=== PATIENT | female | born 1955 | race Hispanic/Latino ===

== ENCOUNTER 2017-10-03 02:13 | Emergency (ER) | payer SELFPAY ==
[2017-10-03 02:43] VITALS: RESP 18; TEMP 98.1
--- NOTE | 2017-10-03 02:46 | ED PDOC ---
Arrival/HPI - General Historian: Patient, Spouse - History of Present Illness Time/Duration: Prior to Arrival, < week Symptom Onset: Gradual Symptom Course: Worsening Quality: Stabbing <Antoine Fair - Last Filed: 10/03/17 02:41> <Ralph Lau - Last Filed: 10/03/17 05:52> - General Chief Complaint: Lower Extremity Problem/Injury Time Seen by Provider: 10/03/17 02:41 - History of Present Illness Narrative History of Present Illness (Text): 10/03/17 04:32 Patient is a 61 year old female with no past medical history presenting to the emergency room with severe right leg pain. The pain is sharp in nature and is constant. It wraps around her right hip and goes down the anterior portion of her thigh. The pain started sunday night after helping her son move. She denies any specific movements or events during that move that caused her to have pain, it just gradually came on. Over the past few days the pain has been getting worse to where she attempted to go to a chiropractor today in an attempt to get relief. It did not work. She took a tylenol with codeine which took the pain from a 20 to a 10. No position improves the pain. She has been unable to stand on her leg tonight and needed to sit on her butt to slide down the stairs. Her had to carry her to the car tonight because she is unable to bear any weight on the leg. She has never had this pain before. Denies any other symptoms at this time. Denies trauma, inciting event, fall, muscle spasms, vision changes, lightheadedness, dizziness, numbness, tingling, saddle parestheisa, loss of bowel or bladder function or low back pain. (Antoine Fair) Past Medical History - Provider Review Nursing Documentation Reviewed: Yes - Infectious Disease Hx of Infectious Diseases: None - Musculoskeletal/Rheumatological Hx Falls: No - Psychiatric Hx Depression: No Hx Substance Use: No - Surgical History Hx Tonsillectomy: Yes - Anesthesia Hx Anesthesia: Yes - Suicidal Assessment Feels Threatened In Home Enviroment: No <Antoine Fair - Last Filed: 10/03/17 02:41> Family/Social History - Physician Review Nursing Documentation Reviewed: Yes Family/Social History: No Known Family HX Smoking Status: Never Smoked Hx Alcohol Use: No Hx Substance Use: No Hx Substance Use Treatment: No <Antoine Fair - Last Filed: 10/03/17 02:41> Allergies/Home Meds <Antoine Fair - Last Filed: 10/03/17 02:41> <Ralph Lau - Last Filed: 10/03/17 05:52> Allergies/Adverse Reactions: Allergies No Known Allergies Allergy (Verified 02/20/12 01:40) Home Medications: Home Meds Medication Instructions Recorded Confirmed Atorvastatin Calcium [Lipitor] 10 mg PO DAILY 02/20/12 02/20/12 Review of Systems - Physician Review All systems were reviewed & negative as marked: Yes - Review of Systems Respiratory: Normal. absent: SOB, Cough Cardiovascular: Normal. absent: Chest Pain, Palpitations, Calf Pain Musculoskeletal: Other (right leg pain) Skin: Normal Neurological: Other (neuropathic pain in right leg) Endocrine: Normal. absent: Diaphoresis <Antoine Fair - Last Filed: 10/03/17 02:41> Physical Exam Vital Signs Reviewed: Yes Temperature: Afebrile Blood Pressure: Hypertensive Pulse: Regular Respiratory Rate: Normal Appearance: Positive for: Well-Appearing, Non-Toxic, Comfortable Pain Distress: None Mental Status: Positive for: Alert and Oriented X 3 - Systems Exam Head: Present: Atraumatic, Normocephalic Conjunctiva: Present: Normal Neck: Present: Normal Range of Motion. No: Meningeal Signs, MIDLINE TENDERNESS , Paraspinal Tenderness Respiratory/Chest: No: Respiratory Distress, Accessory Muscle Use Cardiovascular: Present: Regular Rate and Rhythm Back: Present: Paraspinal Tenderness (b/l). No: CVA Tenderness, Midline Tenderness, Pain with Leg Raise Upper Extremity: Present: Normal Inspection, NORMAL PULSES. No: Edema Lower Extremity: Present: NORMAL PULSES, Neurovascularly Intact, Capillary Refill < 2 s, Other (strength 5/5 b/l). No: Edema, CALF TENDERNESS, Erythema Neurological: Present: GCS=15, CN II-XII Intact, Speech Normal, Motor Func Grossly Intact Skin: Present: Warm, Dry, Normal Color. No: Rashes Psychiatric: Present: Alert, Oriented x 3, Normal Insight, Normal Concentration <Antoine Fair - Last Filed: 10/03/17 02:41> Vital Signs Temp Pulse Resp BP Pulse Ox 10/03/17 02:42 98.1 F 82 18 147/93 H 100 Medical Decision Making <Antoine Fair - Last Filed: 10/03/17 02:41> <Ralph Lau - Last Filed: 10/03/17 05:52> ED Course and Treatment: 10/03/17 02:49 Patient states she has sciatic pain with history of sciatica. Given Flexeril and Toradol Will re-assess after medication as patient is in too much pain to give history 10/03/17 04:10 Patient states the medications has improved the pain slightly but she is still very uncomfortable. She is unable to find a comfortable position for her leg. She is constantly moving it due to pain that is sharp and radiates around her hip down the front of her thigh to her knee. Given 1 percocet Will re-assess (Antoine Fair) Impression: Pt seen and evaluated with senior medical transcriptionist. Aware and agree with HPI, clinical findings, plan, and management. 61 year old female presented lower back pain, similar to usual sciatica symptoms. Plan: -- Toradol -- Flexeril -- Reassess and disposition On re-evaluation, patient feels better and is in no acute distress after medication. Patient is stable for discharge. Patient was instructed to follow up with physician or return if symptoms worsen or new concerning symptoms arise. (Ralph Lau) - Medication Orders Current Medication Orders: Discontinued Medications Cyclobenzaprine HCl (Flexeril) 10 mg PO STAT STA Stop: 10/03/17 02:50 Last Admin: 10/03/17 03:13 Dose: 10 mg Ketorolac Tromethamine (Toradol) 60 mg IM STAT STA Stop: 10/03/17 02:50 Last Admin: 10/03/17 03:14 Dose: 60 mg [facility] Pain Assessment Document 10/03/17 03:14 SS (Rec: 10/03/17 03:18 [facility] [id number] Pain Reassessment Is this a pain reassessment? No Sleep Is patient sleeping during reassessment? No Presence of Pain Presence of Pain Yes Pain Scale Used Pain Scale Used Numeric Location Left, Right or Bilateral Right Pain Location Body Site Leg Description Description Constant Intensity of Pain at present 10 Pain Behavior Moaning Crying Grasping Site Rubbing Site Restlessness IM Administration Charges Document 10/03/17 03:14 SS (Rec: 10/03/17 03:18 [facility] [id number] Injection Site MAR Injection Site Right Deltoid Charges for Administration # of IM Administrations 1 Oxycodone/Acetaminophen (Percocet 5/325 Mg Tab) 1 tab PO STAT STA Stop: 10/03/17 04:10 Last Admin: 10/03/17 04:49 Dose: 1 tab MAR Pain Assessment Document 10/03/17 04:49 SS (Rec: 10/03/17 04:50 [facility] [id number] Pain Reassessment Is this a pain reassessment? Yes Sleep Is patient sleeping during reassessment? 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 / has examined the patient and agrees with the treatment plan. <Ralph Lau - Last Filed: 10/03/17 05:52> Disposition/Present on Arrival - Present on Arrival History of DVT/PE: No History of Uncontrolled Diabetes: No Urinary Catheter: No History of Decub. Ulcer: No History Surgical Site Infection Following: None <Antoine Fair - Last Filed: 10/03/17 02:41> - Present on Arrival Any Indicators Present on Arrival: No - Disposition Have Diagnosis and Disposition been Completed?: Yes Disposition Time: 05:47 Patient Plan: Discharge <Ralph Lau - Last Filed: 10/03/17 05:52> - Disposition Diagnosis: Sciatica, Radiculopathy Disposition: HOME/ ROUTINE Patient Problems: Current Active Problems Problem Status Onset Radiculopathy Acute Sciatica Acute Condition: GOOD Discharge Instructions (ExitCare): Sciatica (DC), Radiculopathy (DC) Additional Instructions: Avoid any strenuous physical activity/avoid placing any pressure on the affected area/take meds as prescribed/follow up with your doctor as scheduled Prescriptions: Cyclobenzaprine [Cyclobenzaprine HCl] 10 mg PO TID PRN #15 tab PRN Reason: Muscle Spasm oxyCODONE/Acetaminophen [Percocet 5/325 mg Tab] 1 ea PO Q6 PRN #16 tab PRN Reason: Pain, Moderate (4-7) Forms: [facility] (Hebrew)
[2017-10-03] MEDS ORDERED: Oxycodone/Acetaminophen 5/325 mg Tab PO STA (04:09)
[2017-10-03 06:08] VITALS: BP 137/82; PULSE 70; O2SAT 98
== END 2017-10-03 06:03 | disposition home or self-care (01) ==
LOC: ED 02:13
DX: M54.10 Radiculopathy, site unspecified (principal); M54.30 Sciatica, unspecified side
CPT/HCPCS: 96372; 99283; J1885

== ENCOUNTER 2017-10-04 07:25 | Inpatient (IN) | payer BC ==
--- NOTE | 2017-10-04 07:48 | ED PDOC ---
Arrival/HPI - General Chief Complaint: Lower Extremity Problem/Injury Time Seen by Provider: 10/04/17 07:47 Historian: Patient - History of Present Illness Narrative History of Present Illness (Text): 10/04/17 08:00 61 year old female, whose PMH includes cholecystectomy, who presents to the emergency department complaining of severe pain on the right side of lower back that radiates down the leg since 3 days ago. Patient states she was lifting something heavy when the pain began, making her come to the emergency department , where she was prescribed Percocets. Patient reports the medication did not relief her pain and went to an orthopedic, who prescribed her Naproxen and an MRI, but she could not wait since the pain was unbearable. Patient denies dysuria, hematuria, frequency, chest pain, shortness of breath, headache, nausea , vomiting, diarrhea, or other complaints. PMD: Dr. Rodriguez Time/Duration: < week (3 days) Symptom Onset: Sudden Symptom Course: Worsening Severity Level: Severe Context: Exertion, Home Past Medical History - Provider Review Nursing Documentation Reviewed: Yes - Infectious Disease Hx of Infectious Diseases: None - Musculoskeletal/Rheumatological Hx Falls: No - Psychiatric Hx Substance Use: No - Surgical History Hx Cholecystectomy: Yes Hx Hysterectomy: Yes Hx Tonsillectomy: Yes - Anesthesia Hx Anesthesia: Yes - Suicidal Assessment Feels Threatened In Home Enviroment: No Family/Social History - Physician Review Nursing Documentation Reviewed: Yes Family/Social History: Unknown Family HX Smoking Status: Never Smoked Hx Alcohol Use: No Hx Substance Use: No Hx Substance Use Treatment: No Allergies/Home Meds Allergies/Adverse Reactions: Allergies No Known Allergies Allergy (Verified 10/04/17 15:29) Home Medications: Home Meds Medication Instructions Recorded Confirmed Methylprednisolone [Medrol Dosepak] 4 mg PO DAILY 10/04/17 10/04/17 Naproxen [Naprosyn] 500 mg PO Q12 10/04/17 10/04/17 Review of Systems - Review of Systems Constitutional: absent: Fevers Respiratory: absent: SOB Cardiovascular: absent: Chest Pain Gastrointestinal: absent: Abdominal Pain, Vomiting Genitourinary Female: absent: Dysuria, Frequency, Hematuria Musculoskeletal: Back Pain (right sided lowere back pain that radiates down the right leg) Skin: absent: Rash Neurological: absent: Headache Endocrine: absent: Diaphoresis Hemo/Lymphatic: absent: Adenopathy Physical Exam Vital Signs Reviewed: Yes Vital Signs Temp Pulse Resp BP Pulse Ox 10/04/17 15:24 98.7 F 72 18 126/66 98 10/04/17 13:00 74 16 129/80 99 10/04/17 12:45 78 18 132/84 98 10/04/17 12:30 88 18 136/81 98 10/04/17 12:00 80 18 129/83 99 10/04/17 11:45 75 16 128/75 99 10/04/17 11:30 74 18 130/67 98 10/04/17 11:05 77 16 134/74 99 10/04/17 10:50 76 18 129/78 99 10/04/17 10:35 88 16 133/80 99 10/04/17 10:20 90 18 131/77 898 H 10/04/17 10:05 92 H 18 136/84 99 10/04/17 07:41 98.0 F 88 18 174/88 H 100 Temperature: Afebrile Blood Pressure: Hypertensive Pulse: Regular Respiratory Rate: Normal Appearance: Positive for: Well-Appearing, Non-Toxic Pain Distress: Moderate Mental Status: Positive for: Alert and Oriented X 3 - Systems Exam Head: Present: Atraumatic, Normocephalic Pupils: Present: PERRL Extroacular Muscles: Present: EOMI Conjunctiva: Present: Normal Mouth: Present: Moist Mucous Membranes Cardiovascular: Present: Regular Rate and Rhythm, Normal S1, S2. No: Murmurs Abdomen: Present: Normal Bowel Sounds. No: Tenderness, Distention, Peritoneal Signs, Rebound, Guarding Back: Present: Paraspinal Tenderness (tenderness in right upper sacrum area ). No: Normal Inspection, Pain with Leg Raise Upper Extremity: Present: Normal Inspection, Normal ROM, NORMAL PULSES, Neurovascularly Intact, Capillary Refill < 2s. No: Cyanosis, Edema, Tenderness , Swelling, Erythema, Deformity Lower Extremity: Present: NORMAL PULSES, Normal ROM, Tenderness (right upper thigh), Neurovascularly Intact, Capillary Refill < 2 s, Other (pain with flexion on hip). No: Normal Inspection, Edema, CALF TENDERNESS, Cyanosis, Erythema, Deformity, Temperature Abnormalties Neurological: Present: GCS=15, CN II-XII Intact, Speech Normal, Motor Func Grossly Intact, Normal Sensory Function, Normal Cerebellar Funct, Norm Deep Tendon Reflexes Skin: Present: Warm, Dry, Normal Color. No: Rashes Psychiatric: Present: Alert, Oriented x 3, Normal Insight, Normal Concentration Medical Decision Making ED Course and Treatment: 10/04/17 Impression: 61 year old female with tenderness on the right upper and sacrum area, along with tenderness on right upper thigh with pain on hip flexion, complaining of right lower back pain that radiates down leg since 3 days ago. Differential Diagnosis included but are not limited to: sciatica vs. lumbar radiculopathy vs. fibrositis Plan: -- Tylenol, Flexeril, Toradol, and Lidoderm -- Lumbar spine x-ray -- Reassess and disposition Progress Notes: 10/04/17 10:15 Lumbar Spine x-ray: Creator : Vishal Sage MD FINDINGS: BONES: Normal alignment. No listhesis. No fracture. DISC SPACES: Mild disc and facet degeneration at L4-5 and L5-S1 OTHER FINDINGS: None. IMPRESSION: Mild disc and facet degeneration at L4-5 and L5-S1 10/04/17 13:30 On reevaluation, patients pain had resolved s/p Ketamine. Once the patient sat down for d/c she experienced exquisite pain that has worsened since she arrived. She was crying in pain. She was unable to walk. Patient was given Morphine and cases was discussed with Dr. Malcolm who plan to admit patient to observation and recommendation for pain management. - Lab Interpretations Lab Results: 10/04/17 13:25 10/04/17 13:25 Lab Results 10/04/17 13:25: Sodium 144, Potassium 4.6, Chloride 104, Carbon Dioxide 20 L, Anion Gap 25 H, BUN 18, Creatinine 0.6 L, Est GFR ( Amer) > 60, Est GFR ( Non-Af Amer) > 60, Random Glucose 88, Calcium 10.3 10/04/17 13:25: PT 12.3, INR 1.08, APTT 27.3 10/04/17 13:25: WBC 9.6, RBC 4.98, Hgb 16.0, Hct 44.6, MCV 89.6, MCH 32.1, MCHC 35.9, RDW 12.0, Plt Count 278, MPV 12.2 H, Gran % 78.5 H, Lymph % (Auto) 17.2 L , [place] % (Auto) 4.3, Eos % (Auto) 0.0 L, Baso % (Auto) 0.0, Gran # 7.55 H, Lymph # (Auto) 1.7, [place] # (Auto) 0.4, Eos # (Auto) 0.0, Baso # (Auto) 0.00 - RAD Interpretation Radiology Orders: 10/04/17 08:01 LS SPINE WITH OBL > 18 YRS OLD [RAD] Stat Vocational Training Teacher: Radiologist - Medication Orders Current Medication Orders: Ketamine HCl 100 mg/ Sodium (Chloride) 110 mls @ 8.13 mls/hr IVPB ONCE STA; 0.1 MG/KG/HR PRN Reason: Protocol Stop: 10/04/17 23:32 Last Admin: 10/04/17 10:05 Dose: 8.13 mls/hr eMAR Start Stop Document 10/04/17 10:05 MECCA (Rec: 10/04/17 10:06 [facility] [id number]) Intravenous Solution Start Date 10/04/17 Start Time 10:06 End Date 10/04/17 End time 12:45 Total Infusion Time 159 Morphine Sulfate (Morphine) 4 mg IVP Q4H PRN PRN Reason: Pain, moderate (4-7) Oxycodone/Acetaminophen (Percocet 10/325 Mg Tab) 1 tab PO Q4H PRN PRN Reason: Pain, moderate (4-7) Discontinued Medications Acetaminophen (Tylenol 325mg Tab) 975 mg PO STAT STA Stop: 10/04/17 08:00 Last Admin: 10/04/17 08:09 Dose: 975 mg MAR Pain/Vitals Document 10/04/17 08:09 MECCA (Rec: 10/04/17 08:09 [facility] [id number]) Pain Reassessment Is This A Pain ReAssessment? No Sleep Is patient sleeping during reassessment? No Presence of Pain Presence of Pain Yes Pain Scale Used Pain Scale Used Numeric Location Description Constant Intensity 10 Scale Used Numeric Cyclobenzaprine HCl (Flexeril) 10 mg PO STAT STA Stop: 10/04/17 08:00 Last Admin: 10/04/17 08:10 Dose: 10 mg Ketorolac Tromethamine (Toradol) 60 mg IM STAT STA Stop: 10/04/17 08:00 Last Admin: 10/04/17 08:10 Dose: 60 mg MAR Pain Assessment Document 10/04/17 08:10 SZA (Rec: 10/04/17 08:10 [id number] Pain Reassessment Is this a pain reassessment? No Sleep Is patient sleeping during reassessment? No Presence of Pain Presence of Pain Yes IM Administration Charges Document 10/04/17 08:10 SZA (Rec: 10/04/17 08:10 [id number]) Injection Site MAR Injection Site Right Gluteus Philipp Charges for Administration # of IM Administrations 1 Lidocaine (Lidoderm) 1 ea TD STAT STA Stop: 10/04/17 08:00 Last Admin: 10/04/17 08:09 Dose: 1 ea MAR Transdermal Patch Site Document 10/04/17 08:09 SZA (Rec: 10/04/17 08:09 [id number]) Transdermal Patch Site Transdermal Patch Site Right Lower Back Morphine Sulfate (Morphine) 4 mg IVP STAT STA Stop: 10/04/17 13:16 Last Admin: 10/04/17 13:25 Dose: 4 mg MAR Pain Assessment Document 10/04/17 13:25 SZA (Rec: 10/04/17 13:26 [id number][facility] Pain Reassessment Is this a pain reassessment? No Sleep Is patient sleeping during reassessment? No Presence of Pain Presence of Pain Yes Pain Scale Used Pain Scale Used Numeric Description Description Constant Intensity of Pain at present 6 IVP Administration Document 10/04/17 13:25 A (Rec: 10/04/17 13:26 [id number]) Charges for Administration # of IVP Administrations 1 - Scribe Statement The provider has reviewed the documentation as recorded by the Scribe Yvonne Cadena Provider Scribe Attestation: All medical record entries made by the Scribe were at my direction and personally dictated by me. I have reviewed the chart and agree that the record accurately reflects my personal performance of the history, physical exam, medical decision making, and the department course for this patient. I have also personally directed, reviewed, and agree with the discharge instructions and disposition. Disposition/Present on Arrival - Present on Arrival Any Indicators Present on Arrival: No History of DVT/PE: No History of Uncontrolled Diabetes: No Urinary Catheter: No History of Decub. Ulcer: No History Surgical Site Infection Following: None - Disposition Have Diagnosis and Disposition been Completed?: Yes Diagnosis: Lumbar radicular pain, Sciatica Disposition: HOME/ ROUTINE Disposition Time: 13:21 Patient Plan: Observation Patient Problems: Current Active Problems Problem Status Onset Lumbar radicular pain Acute Sciatica Acute Condition: FAIR
[2017-10-04] MEDS ORDERED: Lidocaine 5% Patch TD STA (07:59)
--- NOTE | 2017-10-04 10:09 | RAD ---
PROCEDURE: Radiographs of the Lumbar Spine. HISTORY: back pain COMPARISON: No prior. FINDINGS: BONES: Normal alignment. No listhesis. No fracture. DISC SPACES: Mild disc and facet degeneration at L4-5 and L5-S1 OTHER FINDINGS: None. IMPRESSION: Mild disc and facet degeneration at L4-5 and L5-S1
[2017-10-04] MEDS ORDERED: Morphine 4 mg/ml ISec IVP STA (13:15)
[2017-10-04 13:31] LABS: GRAN # 7.55 (1.4-6.5); GRAN % 78.5 % (50.0-68.0); LYMPH # 1.7 (1.2-3.4); LYMPH % 17.2 % (22.0-35.0); MEAN CELL VOLUME 89.6 fl (80.0-105.0); MEAN CORPUSCULAR HEMOGLOBIN 32.1 pg (25.0-35.0); MEAN CORPUSCULAR HGB CONC 35.9 g/dl (31.0-37.0); MEAN PLATELET VOLUME 12.2 fl (7.0-11.0); MONO # 0.4 (0.1-0.6); MONO % 4.3 % (1.0-6.0); RBC 4.98 10^6/uL (3.5-6.1); WHITE BLOOD COUNT 9.6 10^3/ul (4.5-11.0)
[2017-10-04 13:49] LABS: INR 1.08 (0.93-1.08); PARTIAL THROMBOPLASTIN TIME 27.3 Seconds (25.1-36.5); PROTHROMBIN TIME 12.3 SECONDS (9.4-12.5)
[2017-10-04 14:37] LABS: GFR AFRICAN-AMERICAN > 60; GFR NON-AFRICAN AMERICAN > 60
[2017-10-04] MEDS ORDERED: Oxycodone/Acetaminophen 10/325 mg Tab PO PRN (16:51)
[2017-10-04] MEDS ORDERED: Pneumococcal 23-Valent Vaccine IM ONE (20:37)
[2017-10-04 20:38] VITALS: BMI 30.8
[2017-10-04 20:48] LABS: BLOOD UREA NITROGEN 17 mg/dL (7-21); CALCIUM 10.3 mg/dL (8.4-10.5)
[2017-10-04] MEDS ORDERED: METHYLPREDNISOLONE PO SCH (22:00)
[2017-10-04] MEDS: Morphine 4 mg/ml ISec IVP PRN (22:02)
[2017-10-05] MEDS: Morphine 4 mg/ml ISec IVP PRN (06:20)
[2017-10-05] MEDS: METHYLPREDNISOLONE 4 MG PO PRN ×4 (09:04→21:14)
[2017-10-05] MEDS: oxyCODONE 10 mg Immediate Release Tab PO PRN ×2 (10:21→21:18)
--- NOTE | 2017-10-05 12:08 | MRI ---
PROCEDURE: MR LUMBAR SPINE WITHOUT CONTRAST HISTORY: acute back pain with R leg radiculopathy COMPARISON: None available. TECHNIQUE: Multiecho multiplanar sequences were performed through the lumbar spine without the use of intravenous contrast. FINDINGS: Normal lumbar lordosis. Vertebral body heights are preserved. Marrow signal unremarkable. Conus medullaris unremarkable at the level of L1 Paraspinal soft tissues are unremarkable. T12-L1: No disc herniation, spinal canal stenosis or neural foraminal narrowing. L1-2: No disc herniation, spinal canal stenosis or neural foraminal narrowing. L2-3: No disc herniation, spinal canal stenosis or neural foraminal narrowing. L3-4: No disc herniation, spinal canal stenosis or neural foraminal narrowing. L4-5: There is severe facet arthropathy. There is a mild disc bulge. There is severe central stenosis. L5-S1: Disc degeneration and disc bulging with a small radial tear. Bilateral foraminal stenosis OTHER FINDINGS: None. IMPRESSION: L4-5. Severe central stenosis. Bilateral foraminal stenosis at L5-S1
[2017-10-05] MEDS ORDERED: Morphine 4 mg/ml ISec IVP PRN (12:09)
--- NOTE | 2017-10-05 19:26 | HP ---
HISTORY OF PRESENT ILLNESS: This is a 61-year-old female who is coming into the hospital with complaints of lower back pain. The patient states that she started having this acute back pain about three days ago. Prior to coming to the hospital, she was started on steroids with the Medrol Dosepak and was on NSAIDs as well as Percocet. She said the pain did not improve. She had an MRI that was ordered by Dr. Rodriguez, her primary care doctor. She did not have much improvement with the Percocet and also, went to an orthopedic doctor who had prescribed Naproxen. The patient was to today go to get her MRI, but she was not able to walk because of 10/10 back pain, that was radiating to the right side of her legs. She has no complaints of any chest pain. No shortness of breath. No nausea or vomiting. No dysuria, frequency or nocturia. All other review of symptoms are within normal limits except as mentioned. His. ALLERGIES NO KNOWN DRUG ALLERGIES. HOME MEDICATIONS: Medrol Dosepak, Naprosyn and Percocet, she does not remember the dosage. SOCIAL HISTORY She does not smoke, drink or use drugs. FAMILY HISTORY: Noncontributory. PHYSICAL EXAMINATION: VITAL SIGNS: Temperature is 98.8, pulse of 82, blood pressure 128/73, respirations 18, O2 saturation 96%. GENERAL: The patient lying in bed, uncomfortable, and in no acute distress. HEENT: Atraumatic and normocephalic. Anicteric sclerae. Moist mucosa. Brogan conjunctivae. No oral lesions. NECK: No JVD, anterior and posterior adenopathy, thyromegaly, or bruits. CARDIOVASCULAR: S1 and S2 regular. No murmur, rubs, or gallop. LUNGS: Clear to auscultation bilaterally. No wheezes, rales, or rhonchi. ABDOMEN: Bowel sounds are positive. Soft, nontender and nondistended. No hepatosplenomegaly. No rebound and no guarding. EXTREMITIES: In the right leg, there is decreased range of motion because of pain. Positive leg raise test in the right leg. NEUROLOGIC: No facial asymmetry. Tongue is midline. No uvula deviation. Power is 5/5 upper extremity and lower extremity. Sensation intact in upper extremity and lower extremity. PSYCHIATRIC: She is awake, alert and oriented x3. No anxiety or depression. She has normal affect. GENITOURINARY: No CVA tenderness. VASCULAR: 2+ pulses in the carotid pulses and pedal pulses. SKIN: No erythema or nodules SPINE: Shows normal curvature. LABORATORY DATA: White count of 9.6, hemoglobin 16. INR is 1.08. Chemistry shows a creatinine of 0.7. LS spine x-ray done shows mild disk and facet degeneration, L4 and L5 as well as L5 and S1. ASSESSMENT: Acute back pain with right radiculopathy. PLAN: The patient was seen in the ER yesterday because of acute back pain. She had a pain better controlled. She had been placed on ketamine. She was ready to be discharged, but her pain had worsened. She has 10/10 pain. She states the pain medication that she was getting as an outpatient were not relieving her pain. She was having difficulty in ambulating because of this pain, she has uncontrolled pain at this point and so she has failed outpatient treatment. She is going to be admitted to the hospital for further evaluation. She is going to be placed on oxycodone for moderate pain and morphine for severe pain. I have ordered an MRI. I have also asked Pain Management consultation with Dr. Chu. The patient is currently comfortable. She is on a heart-healthy diet. We will await further input from Pain Management as well as start her on physical therapy and see if she can ambulate with the current pain regimen. Alex Malcolm MD
[2017-10-06] MEDS: oxyCODONE 10 mg Immediate Release Tab PO PRN ×3 (05:11→19:41)
[2017-10-06] MEDS: METHYLPREDNISOLONE 4 MG PO PRN ×3 (07:47→21:07)
--- NOTE | 2017-10-06 13:06 | PN ---
DATE: 10/06/2017 HISTORY OF PRESENT ILLNESS: Ms. Bowman is a 61-year-old female admitted to the hospital with intractable back pain. She had an MRI of the back, which showed severe stenosis of L4-L5. She is being followed by [facility]. The pain is better since admission to the hospital. ALLERGIES: NO KNOWN DRUG ALLERGIES. HOME MEDICATIONS: Medrol Dosepak, Percocet, and naproxen. FAMILY HISTORY: Noncontributory. PERSONAL HISTORY: Nonsmoker. No history of alcohol abuse. SOCIAL HISTORY: Lives at home. PHYSICAL EXAMINATION GENERAL: Comfortable in bed, in no acute distress. VITAL SIGNS: Temperature is 98.7, heart rate 80 per minute, blood pressure 125/70, respiratory rate 18 per minute, oxygen saturation 95% on room air. HEENT: Pallor positive. NECK: No lymphadenopathy. CHEST: Air entry present and equal bilaterally. No added sounds. CARDIOVASCULAR: S1 and S2 normal. No murmur. No gallop. ABDOMEN: Soft, nontender. No hepatosplenomegaly. EXTREMITIES: No edema. LABORATORY DATA: White count 9.6, hemoglobin 16. INR is 1.08. Chemistry is normal. Creatinine is 0.7. Imaging as per history of present illness. ASSESSMENT: 1. Chronic back pain. 2. Spinal canal stenosis. 3. Rule out paraproteinemia. PLAN: Pain controlled on current medications. She is currently on morphine 4 mg every 4 hours. Oxycodone every 4 hour p.r.n. We will continue the same. We will add Protonix 40 mg daily. Serum protein electrophoresis, Immunofixation, kappa light-chain ordered to rule out M protein. We will continue to follow closely. Renetta Costello MD
[2017-10-06] MEDS: Morphine 15 mg SR Tab PO SCH ×3 (16:42→22:43)
[2017-10-06] MEDS: Docusate-Senna 50 mg-8.6 mg Tab PO SCH (17:14)
[2017-10-06 22:55] VITALS: O2SAT 94
[2017-10-07] MEDS: oxyCODONE 10 mg Immediate Release Tab PO PRN (06:04)
[2017-10-07 07:54] VITALS: BP 121/78; PULSE 72; RESP 18; TEMP 98.5
[2017-10-07] MEDS: Morphine 15 mg SR Tab PO SCH (09:56)
[2017-10-07] MEDS: Docusate-Senna 50 mg-8.6 mg Tab PO SCH (09:56)
--- NOTE | 2017-10-07 22:38 | DS ---
DISCHARGE DIAGNOSES: 1. Back pain. 2. Spinal stenosis at L4-L5. 3. Possibility of paraproteinemia. HOSPITAL COURSE: The patient was admitted with severe back pain. She was not able to ambulate. Pain management was done during hospitalization. She was treated with oxycodone and Dilaudid IV. Pain was controlled. She was transitioned to oral MS Contin 15 mg p.o. b.i.d. with oxycodone for breakthrough pain. Pain is better controlled now. She is able to ambulate. She has some difficulty occasionally. MRI of the spine showed L4-L5 stenosis. She needs pain management. Advised to see Dr. Rosas. Pain service is consulted during hospitalization. PHYSICAL EXAMINATION ON DISCHARGE: GENERAL: Comfortable in bed, in no acute distress. VITAL SIGNS: Temperature 98.7, heart rate 81 per minute, blood pressure 110/70, respiratory rate 18 per minute, oxygen saturation 98% on room air. HEENT: Pallor positive. NECK: No lymphadenopathy. CHEST: Air entry present and equal bilaterally. No added sounds. CARDIOVASCULAR: S1 and S2 normal. No murmur. No gallop. ABDOMEN: Soft, nontender. No hepatosplenomegaly. EXTREMITIES: No edema. SPINE: Nontender. SKIN: No petechiae. No rash. CONDITION ON DISCHARGE: Stable. DISPOSITION: Discharge home. MEDICATIONS: MS Contin 15 mg p.o. b.i.d., oxycodone 10 mg t.i.d. p.r.n. Senna and Colace b.i.d. Continue home meds. Follow up with Dr. Costello in 1 week. Follow up with Dr. Rosas in 1 week. Follow up with Dr. Baptiste in 1 week. DIET: Regular. All prescriptions given to the patient. Discharge instructions given. Time spent in preparing the discharge 55 minutes. Renetta Costello MD
[2017-10-09 16:37] LABS: ALBUMIN (PEP) 4.2 g/dL (3.8-4.8); ALPHA-1-GLOBULIN (PEP) 0.3 g/dL (0.2-0.3)
== END 2017-10-07 13:22 | disposition home or self-care (01) | DRG 552 ==
LOC: ED 07:25 → ERH 13:29 → 5RSO 16:41 → OBSVTOIN 10-05 08:28
PROVIDERS: ADMIT Internal Medicine Nephrology; ATTEND Internal Medicine Nephrology
DX: M48.061 Spinal stenosis, lumbar region without neurogenic claudication (principal); M54.16 Radiculopathy, lumbar region; M54.30 Sciatica, unspecified side; X50.0XXA Overexertion from strenuous movement or load, initial encounter; G89.29 Other chronic pain; Z90.49 Acquired absence of other specified parts of digestive tract; Z90.710 Acquired absence of both cervix and uterus

== ENCOUNTER 2018-07-23 08:22 | Outpatient (CLI) | payer BC | END 2018-07-23 08:23 | disposition home or self-care (01) | LOC: RAD 08:22 ==

== ENCOUNTER 2018-08-29 07:09 | Outpatient (CLI) | payer BC | END 2018-08-29 07:10 | disposition home or self-care (01) | LOC: LAB 07:09 ==